=== PATIENT | female | born 1970 | race Native Hawaiian/Other Pacific Islander ===

== ENCOUNTER 2016-11-30 23:17 | Observation (INO) | payer OTHER ==
[2016-11-30 23:40] VITALS: BP 146/81; PULSE 56; RESP 16; TEMP 98; O2SAT 98
--- NOTE | 2016-12-01 00:44 | ED PDOC ---
HPI: Back Time Seen by Provider: 12/01/16 00:00 Chief Complaint (Nursing): Back Pain Chief Complaint (Provider): left flank pain History Per: Patient History/Exam Limitations: no limitations Onset/Duration Of Symptoms: Hrs Current Symptoms Are (Timing): Still Present Additional Complaint(s): 46yo female with PMHx including right sided kidney stone (5 years ago), breast cancer presents to the ED with c/o left sided flank pain since 1500. [place] and give [place] by a doctor there. Noticed blood streak in urine, but no dysuria. Notes nausea and vomiting. Past Medical History Reviewed: Historical Data, Nursing Documentation, Vital Signs Vital Signs: Last Vital Signs Temp 98.0 F 11/30/16 23:37 Pulse 56 L 11/30/16 23:37 Resp 16 11/30/16 23:37 BP 146/81 11/30/16 23:37 Pulse Ox 98 11/30/16 23:37 - Medical History PMH: Kidney Stones Other PMH: breast CA - Surgical History Surgical History: No Surg Hx - Family History Family History: States: No Known Family Hx - Social History Current smoker - smoking cessation education provided: No Alcohol: None Drugs: Denies - Home Medications Home Medications: Ambulatory Orders Medication Instructions Recorded Ciprofloxacin HCl [Cipro] 500 mg PO BID #20 tab 12/01/16 Ibuprofen [Motrin] 600 mg PO Q6H PRN #20 tab 12/01/16 Tamsulosin [Flomax] 0.4 mg PO DAILY #14 cap 12/01/16 - Allergies Allergies/Adverse Reactions: Allergies Allergy/AdvReac Type Severity Reaction Status Date / Time No Known Allergies Allergy Verified 11/30/16 23:37 Review of Systems ROS Statement: Except As Marked, All Systems Reviewed And Found Negative Gastrointestinal: Positive for: Nausea, Vomiting Genitourinary Female: Positive for: Other (streak of blood in urine ). Negative for: Dysuria Musculoskeletal: Positive for: Back Pain (left sided flank pain ) Physical Exam - Reviewed Nursing Documentation Reviewed: Yes Vital Signs Reviewed: Yes - Physical Exam Appears: Positive for: Well, No Acute Distress, Uncomfortable Head Exam: Positive for: ATRAUMATIC, NORMAL INSPECTION, NORMOCEPHALIC Skin: Positive for: Normal Color, Warm, Dry Eye Exam: Positive for: Normal appearance, EOMI, PERRL ENT: Positive for: Normal ENT Inspection Neck: Positive for: Normal, Painless ROM, Supple Cardiovascular/Chest: Positive for: Regular Rate, Rhythm. Negative for: Murmur , Tachycardia Respiratory: Positive for: Normal Breath Sounds. Negative for: Wheezing, Respiratory Distress Gastrointestinal/Abdominal: Positive for: Normal Exam, Bowel Sounds, Soft. Negative for: Tenderness Back: Positive for: L CVA Tenderness. Negative for: R CVA Tenderness Extremity: Positive for: Normal ROM. Negative for: Deformity, Swelling Neurologic/Psych: Positive for: Alert, Oriented. Negative for: Motor/Sensory Deficits - Laboratory Results Result Diagrams: 12/01/16 01:11 12/01/16 01:11 - ECG O2 Sat by Pulse Oximetry: 98 Pulse Ox Interpretation: Normal (RA) Medical Decision Making Medical Decision Makin: Impression: left flank pain, r/o kidney stone Plan: CT A/P Labs IVF, Zofran 4mg IV, Toradol 30mg IV ED obs reassess 0235: Patient still in pain. Morphine ordered. 0255: Patient feels improved. 0407: CT chest impression: No acute findings visualized in the chest. CT A/P impression: 1. Left mid ureteral stone with associated mild hydronephrosis. 2. Large uterine fibroid. 3. Prominent periuterine vessels visualized in the pelvis bilaterally, with dilatation of the bilateral ovarian veins. These findings can be associated with pelvic congestion syndrome. 0515: Patient feels better and is stable for d/c. pt tolerated po and feels better.Diagnosis is kidney stone. fup with urologist for that and with claim examiner for other findings. pt agreeabel to that plan. Advised to return to ED with any worsening or concerning symptoms. Patient given copy of CT report. Scribe Attestation: Documented by Ed Samuel acting as a scribe for Jesús Bowden MD. Provider Scribe Attestation: All medical record entries made by the Scribe were at my direction and personally dictated by me. I have reviewed the chart and agree that the record accurately reflects my personal performance of the history, physical exam, medical decision making, and the department course for this patient. I have also personally directed, reviewed, and agree with the discharge instructions and disposition. ED OBSERVATION Date of observation admission: 12/01/16 Time of observation admission: 00:57 - Observation admission statement Patient is being placed in observation because:: left flank pain - Goals of Observation Goals of observation are:: pending CT A/P Disposition - Clinical Impression Clinical Impression: Kidney stone - Patient ED Disposition Is Patient to be Admitted: No Counseled Patient/Family Regarding: Studies Performed, Diagnosis, Need For Followup - Disposition Disposition: Routine/Home Disposition Time: 05:15 Condition: GOOD
[2016-12-01] MEDS ORDERED: Sodium Chloride 0.9% 1,000 ML IV STA (01:00)
[2016-12-01 01:16] LABS: BASO # 0.2 K/uL (0.0-0.2); BASO % 1.2 % (0.0-2.0); HEMATOCRIT 40.8 % (34.0-47.0); LYMPH # 0.8 K/uL (1.0-4.3); LYMPH % 5.4 % (20.0-40.0); MEAN CELL VOLUME 87.3 fl (81.0-99.0); MEAN CORPUSCULAR HEMOGLOBIN 28.9 pg (27.0-31.0); MEAN CORPUSCULAR HGB CONC 33.1 g/dL (33.0-37.0); MEAN PLATELET VOLUME 9.4 fl (7.2-11.7); MONO # 0.4 K/uL (0.0-0.8); MONO % 2.8 % (0.0-10.0); NEUT % 90.6 % (50.0-75.0); PLATELET COUNT 230 K/uL (130-400); WHITE BLOOD COUNT 15.5 K/uL (4.8-10.8)
[2016-12-01] MEDS ORDERED: Iohexol 240 (50 ml) PO ONE (01:23)
[2016-12-01 01:24] LABS: ALB/GLOB RATIO 1.3 (1.0-2.1); ALKALINE PHOSPHATASE 71 U/L (38-126); ALT/SGPT 47 U/L (9-52); AST/SGOT 42 U/L (14-36); BILIRUBIN,TOTAL 0.7 mg/dl (0.2-1.3); BLOOD UREA NITROGEN 15 mg/dl (7-17); CALCIUM 8.8 mg/dL (8.4-10.2); CARBON DIOXIDE 21 mmol/L (22-30); CHLORIDE 105 mmol/L (98-107); GFR AFRICAN-AMERICAN > 60; GLUCOSE,RANDOM 139 mg/dL (65-105); POTASSIUM 3.9 MMOL/L (3.6-5.0); SODIUM 143 mmol/l (132-148); TOTAL PROTEIN 7.6 G/DL (6.3-8.2)
[2016-12-01] MEDS ORDERED: Sodium Chloride 0.9% 50 ML IV ONE (02:56)
[2016-12-01] MEDS ORDERED: Iohexol 300 100 ML IJ ONE (02:56)
[2016-12-01 03:10] LABS: NEUTROPHIL 88 % (42-75); TOTAL CELLS COUNTED 100
[2016-12-01 03:13] LABS: LARGE PLATELETS PRESENT
[2016-12-01 04:49] LABS: RBC URINE 324 /hpf (0-3); URINE BILIRUBIN NEGATIVE (NEGATIVE); URINE BLOOD LARGE (NEGATIVE); URINE COLOR YELLOW (YELLOW); URINE GLUCOSE (UA) 50 mg/dL (Normal); URINE KETONE 20 mg/dL (NEGATIVE); URINE LEUKOCYTE ESTERASE NEG Leu/uL (Negative); URINE PROTEIN 100 mg/dL (NEGATIVE); URINE UROBILINOGEN 0.2-1.0 mg/dL (0.2-1.0); WBC URINE 6 /hpf (0-5)
--- NOTE | 2016-12-01 09:16 | CT ---
PROCEDURE: CT Chest, Abdomen and Pelvis with intravenous contrast HISTORY: abdominal pain COMPARISON: None. TECHNIQUE: IV dose administered: 95 cc Omnipaque 300 Radiation dose: Total exam DLP = 2011.28 mGy-cm. FINDINGS: CT CHEST WITH CONTRAST: LUNGS: Radiology below speaking well studies that of thanks MEDIASTINUM: Unremarkable. Normal caliber aorta and pulmonary arterial trunk. No aortic dissection. Normal size heart. LYMPH NODES: Unremarkable. PLEURA: Unremarkable. No pneumothorax. No pleural fluid. BONES: Unremarkable. OTHER FINDINGS: 3 cm left breast mass. Micro clip presumably from prior core biopsy noted. CT ABDOMEN AND PELVIS: LIVER: Hepatic steatosis. No focal masses. No intrahepatic bile duct dilatation or perihepatic ascites. Incidental finding(s): Multiple simple hepatic cysts the largest in the right lobe measures 2.1 x 3.3 cm. GALLBLADDER AND BILE DUCTS: Unremarkable. PANCREAS: Unremarkable. No gross lesion or ductal dilatation. SPLEEN: Unremarkable. ADRENALS: Unremarkable. No mass. KIDNEYS AND URETERS: 4 mm obstructing calculus mid left ureter. Proximal hydroureter, hydronephrosis identified. The left kidney is edematous with. Nephric stranding. Multiple additional nonobstructing calculi identified in the left kidney. Right kidney: Punctate nonobstructing calculi identified. VASCULATURE: Unremarkable. No aortic aneurysm. BOWEL: Unremarkable. No obstruction. No gross mural thickening. APPENDIX: Normal appendix. PERITONEUM: Unremarkable. No free fluid. No free air. LYMPH NODES: Unremarkable. No enlarged lymph nodes. BLADDER: Unremarkable. REPRODUCTIVE: Markedly enlarged heterogeneous, fibroid uterus measuring 12 by 9.4 x 10.9 cm. BONES: No acute fracture. OTHER FINDINGS: None. IMPRESSION: Unilateral, left obstructive uropathy related to 4 mm calculus left mid ureter. Proximal hydroureter hydronephrosis an edematous left kidney. Bilateral nonobstructing upper tract calculi. Additional benign and/or incidental findings described above. Concordant results (preliminary interpretation) provided by [employer]. Procedure Completed: 03:28. Preliminary ([facility]) Report: Dictated and Authenticated: 04:07. Final Interpretation: 09:13.
== END 2016-12-01 05:15 | disposition home or self-care (01) ==
LOC: H.ER 23:17 → H.EROBSV 12-01 00:57
PROVIDERS: ADMIT Emergency Medicine; ATTEND Emergency Medicine
DX: N20.0 Calculus of kidney (principal); Z85.3 Personal history of malignant neoplasm of breast